=== PATIENT | female | born 1930 | race Caucasian/White ===

== ENCOUNTER 2019-05-05 17:38 | Inpatient (IN) | payer OTHER ==
[~2019-05-05] VITALS: Ht 160 cm; Wt 71.2 kg
[2019-05-05 17:40] VITALS: BP 115/48
[2019-05-05] MEDS ORDERED: NACL 0.9% 1,500 ML IV SCH (17:45)
[2019-05-05] MEDS ORDERED: cefTRIAXone 1,000 MG in DEXT 5% MINI-BAG PLUS 50 ML IV ONE (17:45)
--- NOTE | 2019-05-05 17:45 | NUR ---
PT BIBA C/O FEVER AND ALC. TYLENOL GIVEN BEFORE BEING SENDING TO THE ER. PT IS ON MONITOR WITH VSS. PATIENT STATES PAIN OF 0/10 AT THIS TIME; VSS; PATIENT POSITIONED FOR COMFORT; HOB ELEVATED; BEDRAILS UP X2; BED DOWN. ER MD MADE AWARE OF PT STATUS.
[2019-05-05 18:15] LABS: HEMATOCRIT 39.5 % (36-48); HEMOGLOBIN 13.2 g/dL (12.0-16.0); MEAN CORPUSCULAR HEMOGLOBIN 32 pg (27-31); MEAN CORPUSCULAR HGB CONC 33 g/dL (33-37); MEAN CORPUSCULAR VOLUME 95.6 fL (80-94); PLATELET COUNT (AUTO) 144 K/uL (140-450); RED BLOOD CELL COUNT(AUTO) 4.14 MIL/uL (4.20-5.40); WHITE BLOOD COUNT (AUTO) 14.2 K/uL (4.8-10.8)
--- NOTE | 2019-05-05 18:20 | NUR ---
STRAIGHT CATH IMPLEMENTED AND URINE SAMPLE OBTAINED. PT TOLERATED WELL.
[2019-05-05 18:30] LABS: LYMPHOCYTES % (MANUAL) 1 % (20-46); MONOCYTES % (MANUAL) 5 % (5-12)
[2019-05-05] MEDS ORDERED: cefTRIAXone 1,000 MG VIAL ONE (18:38)
[2019-05-05 18:40] LABS: ALBUMIN 2.9 g/dL (3.4-5.0); ASPARTATE AMINOTRANSFERASE 740 U/L (15-37); CARBON DIOXIDE 26.3 mmol/L (21-32); CREATININE 1.3 mg/dL (0.6-1.3); GLUCOSE 119 mg/dL (74-106); TOTAL BILIRUBIN 3.4 mg/dL (0.0-1.0); UREA NITROGEN, BLOOD 36 mg/dL (7-18)
[2019-05-05 19:06] LABS: SODIUM SERUM 149 mmol/L (136-145)
[2019-05-05 19:07] LABS: ANION GAP 14.6 (8-16); CHLORIDE 111 mmol/L (98-107); POTASSIUM 2.9 mmol/L (3.5-5.1)
--- NOTE | 2019-05-05 19:12 | NUR ---
Pt report given to HALEIGH Leach. Transfer of care at this time.
[2019-05-05] MEDS ORDERED: NACL 0.9% 1,000 ML IV ONE (19:40)
[2019-05-05] MEDS ORDERED: KCL 20 MEQ/WATER INJ PREMIX 100 ML IV ONE (19:40)
[2019-05-05 19:46] LABS: APPEARANCE,URINE CLEAR (CLEAR); BILIRUBIN,URINE NEGATIVE (NEGATIVE); BLOOD, URINE TRACE-I (NEGATIVE); COLOR,URINE YELLOW (YELLOW); LEUKOCYTE ESTERASE ,URINE NEGATIVE (NEGATIVE); NITRITE, URINE POSITIVE (NEGATIVE); UGLUCOSE NEGATIVE (NEGATIVE)
[2019-05-05 19:52] LABS: RBC,URINE 0-5 /HPF (0-5); WBC,URINE 0-5 /HPF (0-5)
[2019-05-05] MEDS ORDERED: metroNIDAZOLE 500 MG/NS PREMIX 100 ML IV ONE (22:20)
[2019-05-05] MEDS ORDERED: DEXT 5% /NACL 0.9% 1,000 ML IV SCH (22:28)
[2019-05-05] MEDS ORDERED: ONDANSETRON 4 MG/2 ML VIAL IVP PRN (22:30)
[2019-05-05] MEDS ORDERED: ACETAMINOPHEN 325 MG TAB PO PRN (22:30)
[2019-05-05] MEDS ORDERED: HYDROcodone/APAP 7.5/325 MG 1 TAB PO PRN (22:30)
--- NOTE | 2019-05-06 00:30 | NUR ---
RECEIVED REPORT FROM ER NURSE. PT LETHARGIC. ON O2 AT 2L/MIN VIA NC. NO RESP DISTRESS NOTED. NO S/S OF PAIN. PT ON MEDSURG. SKIN INTACT. IV TO RIGHT WRIST #20G AND LEFT WRIST #22G. SAFETY PRECAUTION IN PLACE.
[2019-05-06 00:36] LABS: CHOL/HDL RATIO 2.5 (1-4.5); MAGNESIUM 1.6 mg/dL (1.8-2.4); PHOSPHORUS 5.4 mg/dL (2.5-4.9); THYROID STIMULATING HORMONE 3.42 uIU/mL (0.34-3.74)
--- NOTE | 2019-05-06 00:40 | NUR ---
PT ADMITTED TO [facility] RM 125B. TRANSFERRED PT VIA RPATERSON WITH [facility]; STABLE CONDITION. REPORT GIVEN TO JAYDA RICARDO. TRANSFER OF CARE AT THIS TIME.
[2019-05-06 00:45] VITALS: BP 131/68
--- NOTE | 2019-05-06 00:50 | NUR ---
V/S TAKEN. PT HEART RATE 51. DR. CASTRO MADE AWARE. PER , HE WILL TRANSFER PT TO TELE.
[2019-05-06] MEDS ORDERED: ELUX75TA PO (02:20)
[2019-05-06] MEDS ORDERED: ASPI-1718 PO (02:20)
[2019-05-06] MEDS ORDERED: ESCI10TA PO (02:20)
[2019-05-06] MEDS ORDERED: AMLO10TA PO (02:20)
[2019-05-06] MEDS ORDERED: SYN.075 PO (02:20)
[2019-05-06] MEDS ORDERED: ATOR20TA PO (02:20)
[2019-05-06] MEDS ORDERED: KEP500 PO (02:20)
--- NOTE | 2019-05-06 03:00 | NUR ---
PT SLEEPING BUT AROUSABLE. RESP EVEN AND UNLABORED. NO S/S OF PAIN. PT KEPT COMFORTABLE.
[2019-05-06 04:00] VITALS: BP 101/63
[2019-05-06] MEDS ORDERED: MAGNESIUM OXIDE 400 MG TAB PO SCH (04:00)
[2019-05-06] MEDS ORDERED: KCL 20 MEQ/WATER INJ PREMIX 200 ML IV SCH (04:00)
--- NOTE | 2019-05-06 05:06 | NUR ---
PT AWAKE AND ALERT BUT NON VERBAL. NO S/S OF PAIN. NO S/S OF RESP DISTRESS NOTED. SAFETY PRECAUTION IN PLACE.
[2019-05-06] MEDS: metroNIDAZOLE 500 MG/NS PREMIX 100 ML IV SCH ×3 (05:21→22:27)
[2019-05-06] MEDS: LEVOTHYROXINE 0.075 MG TAB PO SCH (06:27)
--- NOTE | 2019-05-06 07:10 | NUR ---
ENDORSED PT TO DAY SHIFT NURSE. PT IN STABLE CONDITION.
--- NOTE | 2019-05-06 07:13 | NUR ---
RECEIVED FROM INFORMATION ASSURANCE MANAGER NURSE, PT IS ASLEEP AND LYING ON THE BED WITH SIDE RAILS UP AND CALL LIGHT WITHIN REACH, FALL AND SEIZURE PRECAUTION ENFORCED, IV LINES ON THE RT WRIST G. 20 ON SALINE LOCK AND ON THE LEFT WRIST G. 18 WITH D5 NS INFUSING AT 50ML/HR, INTACT, PT IS ON O2 2L NC, NO SIGN OF DISTRESS NOTED, VISIBLE CHEST RISE AND RESPIRATION IS EVEN, WILL CONTINUE TO BE MONITORED
[2019-05-06 07:45] LABS: BASOPHILS % (AUTO) 0.1 % (0.0-2.0); EOSINOPHILS % (AUTO) 0.1 % (0.0-4.0); HEMATOCRIT 38.3 % (36-48); HEMOGLOBIN 12.6 g/dL (12.0-16.0); LYMPHOCYTES # (AUTO) 0.7 K/uL (2.5-16.5); LYMPHOCYTES % (AUTO) 4.6 % (20.5-51.1); MEAN CORPUSCULAR HEMOGLOBIN 32 pg (27-31); MEAN CORPUSCULAR HGB CONC 33 g/dL (33-37); MEAN CORPUSCULAR VOLUME 97.6 fL (80-94); MONOCYTES # (AUTO) 0.7 K/uL (0.8-1.0); MONOCYTES % (AUTO) 4.2 % (1.7-9.3); NEUTROPHILS # (AUTO) 14.4 K/uL (1.8-7.7); PLATELET COUNT (AUTO) 133 K/uL (140-450); RED BLOOD CELL COUNT(AUTO) 3.92 MIL/uL (4.20-5.40); RED CELL DISTRIBUTION WIDTH 14.7 % (11.6-13.7); WHITE BLOOD COUNT (AUTO) 15.8 K/uL (4.8-10.8)
[2019-05-06 08:00] VITALS: BP 150/65
[2019-05-06 08:12] LABS: MAGNESIUM 1.8 mg/dL (1.8-2.4); PHOSPHORUS 4.9 mg/dL (2.5-4.9)
[2019-05-06 08:27] LABS: CHLORIDE 115 mmol/L (98-107); POTASSIUM 3.6 mmol/L (3.5-5.1); SODIUM SERUM 150 mmol/L (136-145)
[2019-05-06 08:28] LABS: ANION GAP 12.2 (8-16); CARBON DIOXIDE 26.4 mmol/L (21-32); CREATININE 1.2 mg/dL (0.6-1.3); GLUCOSE 114 mg/dL (74-106); UREA NITROGEN, BLOOD 35 mg/dL (7-18)
--- NOTE | 2019-05-06 08:30 | NUR ---
PT IS OFF THE UNIT FOR A CT OF THE HEAD, PT IS AWAKE AND AOX0, OPBEYS COMMAND AND SMILES.
--- NOTE | 2019-05-06 08:45 | NUR ---
PT IS BACK TO ROOM FROM A CT OF HEAD, WILL MONITOR PT.
[2019-05-06] MEDS ORDERED: ELUXADOLINE 75 MG PO SCH (09:00)
[2019-05-06] MEDS ORDERED: DOCUSATE SODIUM 100 MG GELCAP PO SCH (09:00)
--- NOTE | 2019-05-06 09:00 | NUR ---
PATIENT HAS BEEN SCREENED AND CATEGORIZED HIGH NUTRITION RISK. PATIENT WILL BE SEEN WITHIN 1-2 DAYS OF ADMISSION. 05/06/19-05/07/[address]
[2019-05-06] MEDS: ESCITALOPRAM 20 MG TAB PO SCH (11:08)
[2019-05-06] MEDS: levETIRAcetam 500 MG TAB PO SCH ×2 (11:09→22:29)
[2019-05-06] MEDS: FAMOTIDINE 20 MG TAB PO SCH (11:09)
--- NOTE | 2019-05-06 11:27 | NUR ---
ECHOCARDIOGRAM IS BEING DONE TO PT NOW, PT IS AWAKE AND CALM. NO SIGN OF DISTRESS NOTED.
[2019-05-06 12:00] VITALS: BP 152/65
[2019-05-06] MEDS: POTASSIUM CHL 20 MEQ/D5-1/2NS 1,000 ML IV SCH ×2 (13:01→22:30)
--- NOTE | 2019-05-06 13:01 | NUR ---
PT WAS GIVEN FLAGYL IVPB AND TOLERATING, AWAKE AND CALM ON THE BED, SAFETY AND SEIZURE PRECAUTION ENFORCED, NO SIGN OF DISTRESS NOTED AND WILL MONITOR PT.
--- NOTE | 2019-05-06 14:45 | NUR ---
SWALLOW EVALUATION IS BEING DONE TO PT NOW.
--- NOTE | 2019-05-06 14:59 | NUR ---
*S.T. BEDSIDE SWALLOW EVAL COMPLETED* See report for details. Pt presents w/ moderate oropharyngeal dysphagia c/b prolonged and incomplete mastication of solids due to limited lower dentition and moderate swallow delay (2-3 seconds) across all textures. No overt s/s aspiration observed, however. 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 Pt is at moderate risk for aspiration. Recommend: 1) Advance to pureed diet, thin liquids okay, straws okay; after cleared after surgery consult. 2) Crush P.O. meds and mix w/ puree such as applesauce. 3) 1:1 feeder w/ aspiration precautions. Pt appears to be functioning at baseline. Therefore no further swallow tx is indicated at this time. DC to [facility] [place] care; endorsed to HALEIGH Patton. Time [id number]
[2019-05-06 16:00] VITALS: BP 150/69
--- NOTE | 2019-05-06 16:20 | NUR ---
05/06/19 RD INITIAL ASSESSMENT COMPLETED PLEASE REFER TO NUTRITION ASSESSMENT UNDER CARE ACTIVITY FOR ESTIMATED NUTRITIONAL NEEDS. 1. CONTINUE NPO DIET TOLERATED 2. WHEN/IF MEDICALLY APPROPRIATE, CONSIDER PUREED DIET PER SWALLOW EVALUATION. 3. RD TO FOLLOW-UP 2-3 DAYS, HIGH RISK FACUNDO WALTON, RD
--- NOTE | 2019-05-06 18:17 | NUR ---
PT WAS GIVEN ROCEPHIN IVPB NOW.
--- NOTE | 2019-05-06 19:20 | NUR ---
ENDORSED PT TO FINANCIAL SERVICES INTERNSHIP NURSE REGISTRY FOR CONTINUITY OF CARE. PT IS STABLE AT THIS TIME.
[2019-05-06 20:36] VITALS: BP 128/82
[2019-05-06] MEDS: ATORVASTATIN 20 MG TAB PO SCH (21:00)
[2019-05-06] MEDS: SENNA 8.6 MG TAB PO SCH (22:28)
[2019-05-07 04:00] VITALS: BP 118/76
[2019-05-07] MEDS: metroNIDAZOLE 500 MG/NS PREMIX 100 ML IV SCH ×3 (05:23→21:01)
[2019-05-07 06:05] LABS: BASOPHILS % (AUTO) 0.4 % (0.0-2.0); EOSINOPHILS # (AUTO) 0.2 K/uL (0-0.4); EOSINOPHILS % (AUTO) 2.2 % (0.0-4.0); HEMATOCRIT 38.1 % (36-48); HEMOGLOBIN 12.6 g/dL (12.0-16.0); LYMPHOCYTES # (AUTO) 0.7 K/uL (2.5-16.5); LYMPHOCYTES % (AUTO) 8.5 % (20.5-51.1); MEAN CORPUSCULAR HEMOGLOBIN 32 pg (27-31); MEAN CORPUSCULAR HGB CONC 33 g/dL (33-37); MEAN CORPUSCULAR VOLUME 97.9 fL (80-94); MONOCYTES # (AUTO) 0.5 K/uL (0.8-1.0); MONOCYTES % (AUTO) 6.3 % (1.7-9.3); NEUTROPHILS # (AUTO) 7.2 K/uL (1.8-7.7); NEUTROPHILS % (AUTO) 82.6 % (42.2-75.2); PLATELET COUNT (AUTO) 112 K/uL (140-450); RED CELL DISTRIBUTION WIDTH 14.5 % (11.6-13.7); WHITE BLOOD COUNT (AUTO) 8.7 K/uL (4.8-10.8)
[2019-05-07 06:33] LABS: ALBUMIN 2.8 g/dL (3.4-5.0); ASPARTATE AMINOTRANSFERASE 252 U/L (15-37); CARBON DIOXIDE 27.5 mmol/L (21-32); CHLORIDE 113 mmol/L (98-107); CREATININE 1.1 mg/dL (0.6-1.3); GLUCOSE 107 mg/dL (74-106); MAGNESIUM 1.7 mg/dL (1.8-2.4); PHOSPHORUS 2.8 mg/dL (2.5-4.9); POTASSIUM 3.5 mmol/L (3.5-5.1); SODIUM SERUM 149 mmol/L (136-145); TOTAL BILIRUBIN 2.4 mg/dL (0.0-1.0); UREA NITROGEN, BLOOD 27 mg/dL (7-18)
[2019-05-07] MEDS: LEVOTHYROXINE 0.075 MG TAB PO SCH (06:41)
--- NOTE | 2019-05-07 07:17 | NUR ---
RECEIVED PATIENT FROM ELECTRICAL CAD DESIGNER NURSESAWYER PATIENT IS SLEEPING AT THIS TIME. RESPIRATIONS EVEN AND UNLABORED, ROOM AIR. VISIBLE CHEST RISE NOTED. ON TELE MONITORING. ABDOMEN SOFT AND NONTENDER. BOWEL SOUNDS ACTIVE X4 QUADS. SKIN WARM AND DRY. IV IN THE RIGHT WRIST G22, RUNNING D51/2 NS AT 100 ML/HR. PATENT AND INTACT. PATIENT IS BEDBOUND. FALL PRECAUTION IN PLACE. BED IN LOW POSITION. CALL LIGHT IS WITHIN REACH. WILL CONTINUE TO MONITOR
[2019-05-07 08:00] VITALS: BP 148/71
[2019-05-07] MEDS: levETIRAcetam 500 MG TAB PO SCH ×2 (09:24→21:02)
[2019-05-07] MEDS: SENNA 8.6 MG TAB PO SCH ×2 (09:24→21:01)
[2019-05-07] MEDS: FAMOTIDINE 20 MG TAB PO SCH (09:24)
[2019-05-07] MEDS: LACTOBACILLUS RHAMNOSUS GG 1 EACH CAP PO SCH (09:24)
[2019-05-07] MEDS: ESCITALOPRAM 20 MG TAB PO SCH (09:25)
--- NOTE | 2019-05-07 09:25 | NUR ---
GIVEN MORNING MEDICATIONS PO, CRUSHED AND MIXED WITH APPLESAUCE. EXPLAINED TO PATIENT MEDS. WILL CONTINUE TO MONITOR. BED IN LOW. CALL LIGHT IS WITHIN REACH. SEIZURE PRECAUTION IN PLACE.
[2019-05-07] MEDS ORDERED: MAG SULF 2000 MG/WATER PREMIX 50 ML IV SCH (11:00)
--- NOTE | 2019-05-07 11:12 | NUR ---
PATIENT PULLED IV. PATIENT REFUSED TO HAVE THE TELE MONITOR
[2019-05-07] MEDS: POTASSIUM CHL 20 MEQ/D5-1/2NS 1,000 ML IV SCH (11:20)
--- NOTE | 2019-05-07 11:20 | NUR ---
ADMINISTERED D51/2NS WITH KCL 20MEQ VIA IVF. EXPLAINED TO PATIENT MED. BED IN LOW POSITION. CALL LIGHT IS WITHIN REACH. WILL CONTINUE TO MONITOR
--- NOTE | 2019-05-07 11:25 | NUR ---
INSERTED IV IN THE RIGHT FOREARM GAUGE 22. IV PATENT AND INTACT. WILL CONTINUE TO MONITOR
--- NOTE | 2019-05-07 11:57 | NUR ---
GIVEN MAG RIDER FOR MAG LEVEL 1.7 VIA IVF. EXPLAINED TO PATIENT INDICATION. WILL CONTINUE TO MONITOR.
--- NOTE | 2019-05-07 13:35 | NUR ---
GIVEN FLAGYL VIA IVPB. EXPLAINED TO PATIENT MED. IV PATENT AND INTACT
--- NOTE | 2019-05-07 13:40 | NUR ---
PATIENT OFF UNIT FOR ERCP.
[2019-05-07] MEDS ORDERED: PROPOFOL 200 MG/20 ML VIAL IV ONE (14:20)
[2019-05-07] MEDS ORDERED: GLUCAGON 1 MG VIAL ONE (15:03)
[2019-05-07] MEDS ORDERED: hydrALAZINE 20 MG/ML VIAL IVP ONE (16:15)
[2019-05-07] MEDS ORDERED: hydrALAZINE 20 MG/ML VIAL ONE (16:18)
--- NOTE | 2019-05-07 16:45 | NUR ---
PATIENT IS BACK FROM ERCP VIA [facility].
--- NOTE | 2019-05-07 16:47 | NUR ---
VITAL SIGNS TAKEN. PATIENT ON 2L O2 VIA NC, SATURATING 98-100%. PATIENT IS SLEEP BUT OPEN EYES WHEN NAME IS CALLED
--- NOTE | 2019-05-07 17:34 | NUR ---
PATIENT IS SLEEPING BUT OPEN EYES WHEN CALLED NAME. ON 2L O2 VIA NC. BED IN LOW POSITION. CALL LIGHT IS WITHIN REACH. HOB AT 35 DEGREES. WILL CONTINUE TO MONITOR
--- NOTE | 2019-05-07 18:29 | NUR ---
PATIENT IS SLEEPING AT THIS TIME BUT OPEN EYES AND RESPONDS WHEN CALLED. BED IN LOW POSITION. CALL LIGHT IS WITHIN REACH.
--- NOTE | 2019-05-07 19:17 | NUR ---
ENDORSED PATIENT TO COOK'S ASSISTANT NURSE. PATIENT IS IN STABLE CONDITION
--- NOTE | 2019-05-07 19:22 | NUR ---
RECEIVED BEDSIDE REPORT FROM DAYSHIFT NURSE. PT RESTING IN BED. ABLE TO MAKE NEEDS KNOWN. RESPIRATIONS EVEN AND UNLABORED WITH NO SOB OR RESPIRATORY DISTRESS. IV SITE IN RFA 22G IS CLEAN, DRY, AND INTACT. SKIN WARM AND DRY TO TOUCH, SAFETY MEASURES IN PLACE. WILL CONTINUE TO MONITOR.
[2019-05-07 20:00] VITALS: BP 122/57
[2019-05-07] MEDS ORDERED: CRUSHER, PILL MC ONE (20:58)
[2019-05-07] MEDS: ATORVASTATIN 20 MG TAB PO SCH (21:01)
--- NOTE | 2019-05-07 21:02 | NUR ---
ADMINISTERED MEDICATION PRESCRIBED PER MD ORDER. PT TOLERATED WELL. MEDICATION CRUSHED AND MIXED WITH APPLESAUCE. MEDICATION EDUCATION PERFORMED. PT UNABLE TO RETURN DEMONSTRATION. SAFETY MEASURES IN PLACE. WILL CONTINUE TO MONITOR.
--- NOTE | 2019-05-07 22:17 | NUR ---
HOURLY ROUNDING.PT ASLEEP IN BED. RESPONSIVE TO VERBAL AND TACTILE STIMULI. ABLE TO MAKE NEEDS KNOWN. RESPIRATIONS EVEN AND UNLABORED WITH NO SOB OR RESPIRATORY DISTRESS. SKIN WARM AND DRY TO TOUCH, SAFETY MEASURES IN PLACE. WILL CONTINUE TO MONITOR.
--- NOTE | 2019-05-08 00:06 | NUR ---
PT ASLEEP IN BED. VISIBLE CHEST RISE NOTED. NO RESPIRATORY DISTRESS AT THIS TIME. SAFETY MEASURES IN PLACE. WILL CONTINUE TO MONITOR.
--- NOTE | 2019-05-08 01:33 | NUR ---
HOURLY ROUNDING. PT ASLEEP IN BED. RESPONSIVE TO VERBAL AND TACTILE STIMULI. ABLE TO MAKE SOME NEEDS KNOWN. RESPIRATIONS EVEN AND UNLABORED WITH NO SOB OR RESPIRATORY DISTRESS. SAFETY MEASURES IN PLACE. WILL CONTINUE TO MONITOR.
[2019-05-08] MEDS: POTASSIUM CHL 20 MEQ/D5-1/2NS 1,000 ML IV SCH ×2 (01:46→15:48)
--- NOTE | 2019-05-08 01:47 | NUR ---
ADMINISTERED IVF PRESCRIBED PER MD ORDER. PT TOLERATED WELL. SAFETY MEASURES IN PLACE. WILL CONTINUE TO MONITOR
--- NOTE | 2019-05-08 03:23 | NUR ---
PT ASLEEP IN BED. RESPONSIVE TO VERBAL AND TACTILE STIMULI. ABLE TO MAKE NEEDS KNOWN. RESPIRATIONS EVEN AND UNLABORED WITH NO SOB OR RESPIRATORY DISTRESS. SAFETY MEASURES IN PLACE. WILL CONTINUE TO MONITOR.
[2019-05-08 04:00] VITALS: BP 134/70
[2019-05-08] MEDS: metroNIDAZOLE 500 MG/NS PREMIX 100 ML IV SCH ×3 (04:48→21:12)
--- NOTE | 2019-05-08 04:50 | NUR ---
ADMINISTERED MEDICATION PRESCRIBED PER MD ORDER. PT TOLERATED WELL. NO COMPLICATIONS OR CONCERNS AT THIS TIME. WILL CONTINUE TO MONITOR.
--- NOTE | 2019-05-08 05:49 | NUR ---
HOURLY ROUNDING. RISE AND FALL OF CHEST. NO RESPIRATORY DISTRESS. SAFETY MEASURES IN PLACE. WILL CONTINUE TO MONITOR.
[2019-05-08] MEDS: LEVOTHYROXINE 0.075 MG TAB PO SCH (06:23)
--- NOTE | 2019-05-08 06:24 | NUR ---
WENT TO ADMINISTER MEDICATION PRESCRIBED PER MD ORDER BUT PT REFUSED TO TAKE MEDICATION. MEDICATION WAS CRUSHED AND PUT IN APPLESAUCE AND OFFERED TO PT. PT STILL REFUSED TO TAKE IT AND BECAME AGITATED. OFFERED MEDICATION AGAIN AND PATIENT BECAME MORE AGITATED AND CONTINUED TO REFUSE THE MEDICATION. SAFETY MEASURES IN PLACE. WILL CONTINUE TO MONITOR
--- NOTE | 2019-05-08 07:08 | NUR ---
ENDORSED AT BEDSIDE TO DAYSHIFT NURSE. PT ASLEEP IN BED. RESPONSIVE TO VERBAL AND TACTILE STIMULI. ABLE TO MAKE NEEDS KNOWN. RESPIRATIONS EVEN AND UNLABORED WITH NO SOB OR RESPIRATORY DISTRESS. SAFETY MEASURES IN PLACE. PT IS STABLE.
--- NOTE | 2019-05-08 07:10 | NUR ---
RECEIVED BEDSIDE REPORT FROM DIESEL POWER SHOVEL OPERATOR NURSE FOR CONTINUITY OF CARE. PT IS RESTING ON BED AT THIS TIME. AROUSABLE TO VOICE. RESPIRATION EVEN AND UNLABORED ON RA. FLACC 0. NO SIGNS OF DISTRESS NOTED. IV ON R FA 22G, CLEAN AND INTACT, INFUSING PER MD ORDER. SKIN CLEAN AND DRY. PT IS INCONTINENT AND BEDREST. MITTEN ON HADS NOTED, NO SIGNS OF INJURY, CAPILLARY RETURN < [address] SEC[address] SAFETY MEASURES IN PLACE. BED IN LOW POSITION AND CALL LIGHT WITHIN REACH. FALL RISK PROTOCOL IN PLACE AND BED ALARM ACTIVATED.
[2019-05-08 08:00] VITALS: BP 145/60
[2019-05-08 08:13] LABS: BASOPHILS % (AUTO) 0.2 % (0.0-2.0); EOSINOPHILS # (AUTO) 0.3 K/uL (0-0.4); EOSINOPHILS % (AUTO) 3.6 % (0.0-4.0); HEMATOCRIT 36.6 % (36-48); HEMOGLOBIN 12.3 g/dL (12.0-16.0); LYMPHOCYTES # (AUTO) 0.7 K/uL (2.5-16.5); LYMPHOCYTES % (AUTO) 9.7 % (20.5-51.1); MEAN CORPUSCULAR HEMOGLOBIN 32 pg (27-31); MEAN CORPUSCULAR HGB CONC 34 g/dL (33-37); MONOCYTES # (AUTO) 0.4 K/uL (0.8-1.0); MONOCYTES % (AUTO) 5.5 % (1.7-9.3); PLATELET COUNT (AUTO) 118 K/uL (140-450); RED BLOOD CELL COUNT(AUTO) 3.82 MIL/uL (4.20-5.40); RED CELL DISTRIBUTION WIDTH 14.5 % (11.6-13.7); WHITE BLOOD COUNT (AUTO) 7.4 K/uL (4.8-10.8)
--- NOTE | 2019-05-08 08:30 | NUR ---
RECEIVED A CALL FROM PARK MANAGER. EXPLAINED THAT PT HAS EAT BREAKFAST THIS AM AND CONSENT NEEDED TO BE SIGN. PARK MANAGER WAS AWARE AND INSTRUCTED PT NEED TO BE NPO FOR 4 HOURS FOR PROCEDURE. WILL CONTACT CT ONCE PT IS READY.
[2019-05-08 09:29] LABS: PHOSPHORUS 2.3 mg/dL (2.5-4.9)
[2019-05-08] MEDS: SENNA 8.6 MG TAB PO SCH ×2 (09:29→21:13)
[2019-05-08] MEDS: ESCITALOPRAM 20 MG TAB PO SCH (09:30)
[2019-05-08] MEDS: LACTOBACILLUS RHAMNOSUS GG 1 EACH CAP PO SCH (09:30)
[2019-05-08] MEDS: levETIRAcetam 500 MG TAB PO SCH ×2 (09:30→21:13)
[2019-05-08] MEDS: FAMOTIDINE 20 MG TAB PO SCH (09:30)
--- NOTE | 2019-05-08 09:30 | NUR ---
CHECKED AM VITAL SIGNS PRIOR TO MEDS ADMINISTER; TEMP 97.4, BP 145/60, PULSE 64, RR 16, SPO2 94% AT RA, FLACC 0. CRUSHED MEDS AND MIXED WITH APPLE SAUCE, MEDS ED PROVIDED AND REINFORCEMENT NEEDED DUE TO PT'S MENTAL STATUS, PT TOLERATED MEDS WELL. PT IS RESTING ON BED AND AROUSABLE TO VOICE, MUMBLING. NO SIGNS OF DISTRESS NOTED. SAFETY MEASURES IN PLACE. BED IN LOW POSITION AND CALL LIGHT WITHIN REACH. FALL RISK PROTOCOL IN PLACE AND BED ALARM ACTIVATED.
--- NOTE | 2019-05-08 11:02 | NUR ---
CALLED PT'S SON KELLI LAROSE [phone] AND OBTAINED VERBAL CONSENT FOR CT SCAN WITH CONTRAST. KELLI WAS AWARE AND ACKNOWLEDGED THAT PT IS GOING TO GET CT WITH CONTRAST AND AGREEABLE TO IT.
--- NOTE | 2019-05-08 11:50 | NUR ---
STARTED NEW IV ON RAC 20G, PT TOLERATED WELL. NO SIGNS OF DISTRESS NOTED. SAFETY MEASURES IN PLACE.
--- NOTE | 2019-05-08 12:22 | NUR ---
NOTIFIED PROSPECTING OBSERVER AND SPOKE WITH FINA THAT PT IS READY. CONSENT OBTAINED AND IV INSERTED. FINA WAS AWARE AND SAID "I WILL FERRYBOAT CAPTAIN PT IN 15 MINS."
--- NOTE | 2019-05-08 12:50 | NUR ---
PT IS OFF UNIT FOR CT SCAN. PT IS IN STABLE CONDITION.
--- NOTE | 2019-05-08 13:30 | NUR ---
PT CAME BACK ON UNIT. CONNECTED PT TO IV FLUID. SAFETY MEASURES IN PLACE. BED IN LOW POSITION AND CALL LIGHT WITHIN REACH. BED ALARM ACTIVATED.
--- NOTE | 2019-05-08 13:48 | NUR ---
ADMINISTERED METRONIDAZOLE VIA IVPB PER MD ORDER, MED ED PROVIDED TO PT AND REINFORCEMENT NEEDED DUE TO PT'S MENTAL STATUS, PT IS RESTING ON BED AT THIS TIME. RESPIRATION EVEN AND UNLABORED ON RA. FLACC 0. NO SIGNS OF DISTRESS NOTED. SAFETY MEASURES IN PLACE. BED IN LOW POSITION AND CALL LIGHT WITHIN REACH. FALL RISK PROTOCOL IN PLACE AND BED ALARM ACTIVATED.
[2019-05-08 14:45] LABS: ANION GAP 10.8 (8-16); CARBON DIOXIDE 25.7 mmol/L (21-32); CHLORIDE 113 mmol/L (98-107); CREATININE 0.9 mg/dL (0.6-1.3); GLUCOSE 83 mg/dL (74-106); POTASSIUM 3.5 mmol/L (3.5-5.1); SODIUM SERUM 146 mmol/L (136-145); UREA NITROGEN, BLOOD 21 mg/dL (7-18)
[2019-05-08] MEDS ORDERED: SODIUM PHOSPHATE 15 MMOLE in NACL 0.9% 250 ML IV SCH (15:00)
--- NOTE | 2019-05-08 15:48 | NUR ---
ADMINISTERED MED VIA IVPB PER MD ORDER, MED ED PROVIDED TO PT AND REINFORCEMENT NEEDED. PT IS RESTING ON BED, AROUSABLE TO VOICE. RESPIRATION EVEN AND UNLABORED ON RA. FLACC 0. NO SIGNS OF DISTRESS NOTED. SAFETY MEASURES IN PLACE. BED ALARM ACTIVATED.
[2019-05-08 16:00] VITALS: BP 148/65
--- NOTE | 2019-05-08 16:55 | NUR ---
PT ATTEMPTED TO REMOVED IV. FLUSHED IV AND PATENT. WRAPPED IV WITH FLEX AND EDUCATED PT NOT TO REMOVE IV AND IMPORTANCE TO KEEP IV ACCESS IN HOSPITAL. PT SMILED AND SAID "OH, OK!" SAFETY MEASURES IN PLACE. BED IN LOW POSITION AND CALL LIGHT WITHIN REACH. FALL RISK PROTOCOL IN PLACE AND BED ALARM ACTIVATED.
--- NOTE | 2019-05-08 17:50 | NUR ---
FOUND PT REMOVED ALL HER CLOTHES AND ATTEMPTED TO REMOVED IV. HELPED PT TO PUT ON CLOTHES, AND INSTRUCTED PT NOT TO REMOVED IV. SAFETY MEASURES IN PLACE. BED IN LOW POSITION AND CALL LIGHT WITHIN REACH. BED ALARM ACTIVATED.
--- NOTE | 2019-05-08 17:56 | NUR ---
05/08/2019 RD FOLLOW UP COMPLETED PLEASE REFER TO NUTRITION PROGRESS NOTE UNDER CARE ACTIVITY FOR ESTIMATED NUTRITION NEEDS. RD RECOMMENDATIONS: 1. RECOMMEND CONTINUE PUREE DIET TOLERATED 2. ENCOURAGE INCREASED PO INTAKE AND ASSIST PT NEEDED 3. RD TO MONITOR PO INTAKE AND CONSIDER NUTRITION SUPPORT SUPPLEMENT NEXT FOLLOW UP WITH CONTINUED POOR PO INTAKE. (WILL NOT INITIATE TODAY SINCE THE PUREE DIET ORDER IS NEW, STARTS AT DINNER MEAL) 4. RD TO FOLLOW-UP 2-3 DAYS, HIGH RISK ELKIN BEAR MBA, RD
--- NOTE | 2019-05-08 19:05 | NUR ---
ENDORSED PT AT BEDSIDE TO MALT HOUSE OPERATOR NURSE FOR CONTINUITY OF CARE. PT IS RESTING ON BED AT THIS TIME. AROUSABLE TO VOICE. PT IS IN STABLE CONDITION. SAFETY MEASURES IN PLACE. BED ALARM ACTIVATED.
--- NOTE | 2019-05-08 19:10 | NUR ---
RECEIVED REPORT FROM DAYSHIFT NURSE. PT IS RESTING ON BED AT THIS TIME. ABLE TO MAKE NEEDS KNOWN. SKIN WARM AND DRY TO TOUCH. RESPIRATIONS EVEN AND UNLABORED WITH NO SOB OR RESPIRATORY DISTRESS. SAFETY MEASURES IN PLACE. WILL CONTINUE TO MONITOR.
[2019-05-08 20:00] VITALS: BP 93/76
--- NOTE | 2019-05-08 20:30 | NUR ---
HOURLY ROUNDING. PT RESTING IN BED. RESPIRATIONS EVEN AND UNLABORED WITH NO SOB OR RESPIRATORY DISTRESS. PT HAD SOILED CHUX PADS. TURNED AND CHANGED PATIENT. PT TOLERATED WELL. SAFETY MEASURES IN PLACE. WILL CONTINUE TO MONITOR
--- NOTE | 2019-05-08 21:12 | NUR ---
ADMINISTERED MEDICATION PRESCRIBED PER MD ORDER. PT TOLERATED WELL. MEDICATION EDUCATION PERFORMED. PT UNABLE TO VERBALIZE UNDERSTANDING. SAFETY MEASURES IN PLACE.
[2019-05-08] MEDS: ATORVASTATIN 20 MG TAB PO SCH (21:13)
--- NOTE | 2019-05-08 23:38 | NUR ---
HOURLY ROUNDING. PT ASLEEP IN BED. RESPONSIVE TO VERBAL AND TACTILE STIMULI. RESPIRATIONS EVEN AND UNLABORED WITH NO SOB OR RESPIRATORY DISTRESS. SAFETY MEASURES IN PLACE. WILL CONTINUE TO MONITOR
--- NOTE | 2019-05-09 01:40 | NUR ---
VISUAL CHECKS. CHEST RISES AND FALLS SYMMETRICALLY. NO DISTRESS NOTED.
--- NOTE | 2019-05-09 03:03 | NUR ---
PT ASLEEP IN BED. RESPONSIVE TO VERBAL AND TACTILE STIMULI. RESPIRATIONS EVEN AND UNLABORED WITH NO SOB OR RESPIRATORY DISTRESS. SAFETY MEASURES IN PLACE. WILL CONTINUE TO MONITOR
[2019-05-09 04:00] VITALS: BP 122/70
--- NOTE | 2019-05-09 04:15 | NUR ---
PT ASLEEP IN BED. RESPONSIVE TO VERBAL AND TACTILE STIMULI. RESPIRATIONS EVEN AND UNLABORED WITH NO SOB OR RESPIRATORY DISTRESS. PT SOILED CHUX PAD AND WAS CHANGED. SAFETY MEASURES IN PLACE. WILL CONTINUE TO MONITOR
[2019-05-09] MEDS: metroNIDAZOLE 500 MG/NS PREMIX 100 ML IV SCH ×2 (05:03→13:08)
--- NOTE | 2019-05-09 05:03 | NUR ---
ADMINISTERED MEDICATION PRESCRIBED PER MD ORDER. PT TOLERATED WELL. MEDICATION EDUCATION PERFORMED. PT UNABLE TO VERBALIZED UNDERSTANDING. SAFETY MEASURES IN PLACE. WILL CONTINUE TO MONITOR
[2019-05-09] MEDS: LEVOTHYROXINE 0.075 MG TAB PO SCH (06:30)
[2019-05-09] MEDS: POTASSIUM CHL 20 MEQ/D5-1/2NS 1,000 ML IV SCH (06:36)
--- NOTE | 2019-05-09 07:15 | NUR ---
ENDORSED TO DAYSHIFT NURSE. PT RESTING IN BED. ABLE TO MAKE NEEDS KNOWN. SKIN WARM AND DRY TO TOUCH. RESPIRATIONS EVEN AND UNLABORED WITH NO SOB OR RESPIRATORY DISTRESS. SAFETY MEASURES IN PLACE. PT IS STABLE.
--- NOTE | 2019-05-09 07:16 | NUR ---
RECEIVED REPORT FROM ART APPRAISER NURSE. PT IS STABLE, NO SIGNS OF DISTRESS. PT HAS IV AT RT FOREARM 22G AND RT AC 20G WITH D5 NS INFUSING AT 70ML/HR. PT HAS NO KNOWN ALLERGIES. CALL LIGHT WITHIN PT'S REACH, BED ON LOW, SIDERAILS UP.WILL CONTINUE TO MONITOR.
[2019-05-09 07:26] LABS: BASOPHILS % (AUTO) 0.4 % (0.0-2.0); EOSINOPHILS # (AUTO) 0.3 K/uL (0-0.4); EOSINOPHILS % (AUTO) 4.8 % (0.0-4.0); HEMATOCRIT 37.7 % (36-48); HEMOGLOBIN 12.7 g/dL (12.0-16.0); LYMPHOCYTES # (AUTO) 0.7 K/uL (2.5-16.5); LYMPHOCYTES % (AUTO) 10.3 % (20.5-51.1); MEAN CORPUSCULAR HEMOGLOBIN 32 pg (27-31); MEAN CORPUSCULAR HGB CONC 34 g/dL (33-37); MEAN CORPUSCULAR VOLUME 95.6 fL (80-94); MONOCYTES # (AUTO) 0.5 K/uL (0.8-1.0); MONOCYTES % (AUTO) 7.5 % (1.7-9.3); NEUTROPHILS # (AUTO) 5.3 K/uL (1.8-7.7); PLATELET COUNT (AUTO) 115 K/uL (140-450); RED BLOOD CELL COUNT(AUTO) 3.94 MIL/uL (4.20-5.40); RED CELL DISTRIBUTION WIDTH 14.3 % (11.6-13.7); WHITE BLOOD COUNT (AUTO) 6.8 K/uL (4.8-10.8)
[2019-05-09 07:44] LABS: ANION GAP 11.9 (8-16); CARBON DIOXIDE 27.3 mmol/L (21-32); CHLORIDE 109 mmol/L (98-107); CREATININE 0.8 mg/dL (0.6-1.3); GLUCOSE 86 mg/dL (74-106); POTASSIUM 3.2 mmol/L (3.5-5.1); SODIUM SERUM 145 mmol/L (136-145); UREA NITROGEN, BLOOD 14 mg/dL (7-18)
[2019-05-09 07:51] LABS: MAGNESIUM 1.7 mg/dL (1.8-2.4); PHOSPHORUS 2.7 mg/dL (2.5-4.9)
[2019-05-09 08:00] VITALS: BP 165/68
[2019-05-09] MEDS: LACTOBACILLUS RHAMNOSUS GG 1 EACH CAP PO SCH (09:18)
[2019-05-09] MEDS: SENNA 8.6 MG TAB PO SCH (09:18)
[2019-05-09] MEDS: ESCITALOPRAM 20 MG TAB PO SCH (09:19)
[2019-05-09] MEDS: levETIRAcetam 500 MG TAB PO SCH (09:19)
[2019-05-09] MEDS: FAMOTIDINE 20 MG TAB PO SCH (09:20)
--- NOTE | 2019-05-09 09:22 | NUR ---
VITAL SIGNS TAKEN; BP 165/68, PULSE 55, RR 16, SPO2 95% ON RA, DENIED PAIN. NOTIFIED DR DALEY THAT BP IS HIGH. SCHEDULED MEDS GIVEN CRUSHED AND MIXED WITH APPLESAUCE. MEDICATION EDUCATION PROVIDED TO THE PT. WILL CONTINUE TO MONITOR.
[2019-05-09] MEDS ORDERED: ENALAPRILAT 2.5 MG/2 ML VIAL IVP SCH (10:15)
[2019-05-09] MEDS ORDERED: LACT10CA PO (10:26)
[2019-05-09] MEDS ORDERED: ROC2I IV (10:26)
[2019-05-09] MEDS ORDERED: METR500S14 IV (10:26)
--- NOTE | 2019-05-09 10:50 | NUR ---
CHECKED BP PRIOR TO MED ADMINISTER, BP 168/73, PULSE 54. ADMINISTERED BP MED VIA IVP AND MAG CHL, CRUSHED AND MIXED IN APPLE SAUCE, PT TOLERATED WELL. MEDS ED PROVIDED TO PT AND REINFORCEMENT NEEDED. PT IS RESTING ON BED. DENIED PAIN, SOB, AND DIZZINESS. NO SIGNS OF DISTRESS NOTED. SAFETY MEASURES IN PLACE. BED ALARM ACTIVATED.
[2019-05-09] MEDS ORDERED: POTASSIUM CHLORIDE 20% 40 MEQ/15 ML UDC PO SCH (11:00)
[2019-05-09] MEDS ORDERED: MAGNESIUM CHLORIDE 64 MG TABEC PO SCH (11:00)
[2019-05-09 11:06] LABS: ALBUMIN 2.5 g/dL (3.4-5.0); BILIRUBIN,DIRECT 0.7 mg/dL (0.0-0.3); TOTAL BILIRUBIN 1.5 mg/dL (0.0-1.0)
--- NOTE | 2019-05-09 11:24 | NUR ---
ADMINISTERED ROCEPHIN VIA IVPB PER MD ORDER, MED ED PROVIDED TO PT AND REINFORCEMENT NEEDED DUE TO PT'S MENTAL STATUS. PT RESTING ON BED. RESPIRATION EVEN AND UNLABORED ON RA. NO SIGNS OF DISTRESS NOTED. SAFETY MEASURES IN PLACE. BED ALAR ACTIVATED.
[2019-05-09 11:51] VITALS: BP 153/68
--- NOTE | 2019-05-09 11:51 | NUR ---
REASSESSED BP AND RECEIVED 153/68 PULSE 61. PT IS RESTING ON BED. RESPIRATION EVEN AND UNLABORED ON RA. WHEN ASKED IF SHE HAS PAIN, PT REPLIES "NO NO!" FLACC 0. NO SIGNS OF DISTRESS NOTED. SAFETY MEASURES IN PLACE. BED IN LOW POSITION AND CALL LIGHT WITHIN REACH. BED ALARM ACTIVATED.
--- NOTE | 2019-05-09 12:01 | NUR ---
ADMINISTERED POTASSIUM CHLORIDE VIA PO, PT TOLERATED WELL. MED ED PROVIDED AND REINFORCEMENT NEEDED. PT IS RESTING ON BED. NO SIGNS OF DISTRESS NOTED. SAFETY MEASURES IN PLACE. BED ALARM ACTIVATED.
--- NOTE | 2019-05-09 13:08 | NUR ---
ADMINISTERED METRONIDAZOLE VIS IVPB PER MD ORDER, MED ED PROVIDED TO PT AND REINFORCEMENT NEEDED DUE TO PT'S MENTAL STATUS. PT IS SITTING UP ON BED AND EATING HER LUNCH SLOWLY. NO SIGNS OF DISTRESS NOTED. SAFETY MEASURES IN PLACE. BED ALARM ACTIVATED.
--- NOTE | 2019-05-09 15:05 | NUR ---
FREQUENT CHECKS DONE. PT IS ASLEEP COMFORTABLY. NO SIGNS OF DISTRESS. ALL SAFETY MEASURES ARE IN PLACE. CALL LIGHT WITHIN PT'S REACH. WILL CONTINUE TO MONITOR
--- NOTE | 2019-05-09 15:45 | NUR ---
RECEIVED A CALL FROM PRABHAKAR FROM [facility]. HE SAID THAT THE PT WILL GO TO ROOM 204 B AND WE WILL NEED TO ARRANGE THE TRANSPORT. COMMUNICATED THE INFO TO THE CHARGE NURSE.
--- NOTE | 2019-05-09 15:45 | NUR ---
CALLED [facility], SPOKE WITH [facility]EN [facility]. PT'S FACE SHEET FAXED TO PRABHAKAR REQUESTED. @1600 HRS; GUILLERMO CALLED BACK FOR ROOM NUMBER ([id number]). SET UP TRANSPORTATION THRU [facility], [place]. PER GIOVANNI, ETA WILL BE AT 5 PM TODAY. CAL ASSIGNED MADE AWARE.
--- NOTE | 2019-05-09 16:30 | NUR ---
PCS FORM FAXED TO [facility], CONFIRMATION ATTACHED TO PT'S CHART.
--- NOTE | 2019-05-09 16:45 | NUR ---
GAVE REPORT TO JUNE FROM [facility]. ALSO INFORMED SON, KELLI REGARDING THE TRANSFER. HE VERBALIZED UNDERSTANDING.
--- NOTE | 2019-05-09 16:48 | NUR ---
PT PULLED OUT IV FROM R AC, CHECKED IV CANNULA INTACT. NO BLEEDING AT IV SITE. EDUCTED PT NOT TO REMOVED IV AND IMPORTANCE OF HAVING IV ACCESS, REINFORCEMENT NEEDED. MANAGER FORENSIC IS CHANGING PT INTO PINK GOWN. NO SIGNS OF DISTRESS NOTED. SAFETY MEASURES IN PLACE. BED ALARM ACTIVATED.
--- NOTE | 2019-05-09 17:00 | NUR ---
PT IS PICKED UP VIA [facility]. GAVE BRIEF REPORT REGARDING THE ROOM NUMBER AND FACILITY. DENTURES AND PACKET WERE GIVEN TO TRANSPORT OJ.
[2019-05-09] MEDS ORDERED: SENNA 8.6 MG TAB PO SCH (21:00)
[2019-05-10] MEDS ORDERED: ESCITALOPRAM 20 MG TAB PO SCH (09:00)
== END 2019-05-09 17:05 | DRG 444 ==
LOC: MED 17:38 → MMU 22:28
PROVIDERS: ADMIT General Practice; ATTEND General Practice
PROC: 0F798DZ Dilation of Common Bile Duct with Intraluminal Device, Via Natural or Artificial Opening Endoscopic (ICD-10-PCS; principal; 2019-05-07 12:00)
DX: K83.1 Obstruction of bile duct (principal); G93.41 Metabolic encephalopathy; E43 Unspecified severe protein-calorie malnutrition; J96.20 Acute and chronic respiratory failure, unspecified whether with hypoxia or hypercapnia; I62.00 Nontraumatic subdural hemorrhage, unspecified; N17.0 Acute kidney failure with tubular necrosis; N39.0 Urinary tract infection, site not specified; E87.0 Hyperosmolality and hypernatremia; J84.9 Interstitial pulmonary disease, unspecified; E87.2 Acidosis; R78.81 Bacteremia; E03.9 Hypothyroidism, unspecified; E78.5 Hyperlipidemia, unspecified; G30.9 Alzheimer's disease, unspecified; F02.80 Dementia in other diseases classified elsewhere, unspecified severity, without behavioral disturbance, psychotic disturbance, mood disturbance, and anxiety; G40.909 Epilepsy, unspecified, not intractable, without status epilepticus; I10 Essential (primary) hypertension; F32.9 Major depressive disorder, single episode, unspecified; K57.90 Diverticulosis of intestine, part unspecified, without perforation or abscess without bleeding; K58.9 Irritable bowel syndrome, unspecified; E87.6 Hypokalemia; E83.42 Hypomagnesemia; R13.10 Dysphagia, unspecified; E87.8 Other disorders of electrolyte and fluid balance, not elsewhere classified; E83.39 Other disorders of phosphorus metabolism; I44.7 Left bundle-branch block, unspecified; Z68.28 Body mass index [BMI] 28.0-28.9, adult
CPT/HCPCS: 36415; 70450; 71045; 71260; 74330; 76705; 77003; 80048; 80053; 80076; 81001; 82150; 82550; 83036; 83605; 83690; 83735; 83880; 84100; 84443; 84484; 85025; 85610; 85730; 87040; 87081; 87086; 87186; 87804; 92610; 93005; 96361; 96365; 96367; 99291; C1758; C1769; C1773; J0360; J0696; J1610; J2704; J3475; J3480; J3490; J7030; J7042; J7060; Q0092

== ENCOUNTER 2020-03-18 15:14 | Emergency (ER) | payer OTHER ==
[~2020-03-18] VITALS: Ht 162.6 cm; Wt 54.4 kg
[~2020-03-18 15:14] MED LIST: AMLO10TA PO; ASPI-1822 PO; ATOR20TA PO; ELUX75TA PO; ESCI10TA PO; KEP500 PO; LACT10CA PO; METR500S14 IV; ROC2I IV; SYN.075 PO
[2020-03-18 15:24] VITALS: BP 118/55
--- NOTE | 2020-03-18 15:29 | NUR ---
BIBA TO BED 7.
[2020-03-18 17:24] LABS: APPEARANCE,URINE CLEAR (CLEAR); BILIRUBIN,URINE NEGATIVE (NEGATIVE); BLOOD, URINE NEGATIVE (NEGATIVE); COLOR,URINE YELLOW (YELLOW); LEUKOCYTE ESTERASE ,URINE NEGATIVE (NEGATIVE); NITRITE, URINE NEGATIVE (NEGATIVE); PH,URINE 5.5 (5.0-9.0); UGLUCOSE NEGATIVE (NEGATIVE)
--- NOTE | 2020-03-18 17:30 | NUR ---
89 YEAR OLD BIBA FROM HOME AFTER SYNCOPE EPISODE. PER SON ON PHONE SHE WAS CONSTIPATED AND TRIED REALLY HARD TO PASS STOOL. AFTER PASSING STOOL, PT PASSED OUT. EVENT WAS WITNESSED BY SON, STATES SHE DID NOT FALL OR HIT HEAD. PT ALERT AND AWAKE, APHASIC, BREATHING EVEN AND UNLABORED, SKIN WARM AND DRY. BED IN LOWEST POSITION, LOCKED, BED RAIL UPX2. PMH - DEMENTIA ALLERGIES - NKA
[2020-03-18 17:46] LABS: BASOPHILS % (AUTO) 0.4 % (0.0-2.0); EOSINOPHILS # (AUTO) 0.1 K/uL (0-0.4); EOSINOPHILS % (AUTO) 1.5 % (0.0-4.0); HEMATOCRIT 42.2 % (36-48); HEMOGLOBIN 14.2 g/dL (12.0-16.0); LYMPHOCYTES # (AUTO) 0.8 K/uL (2.5-16.5); MEAN CORPUSCULAR HEMOGLOBIN 32 pg (27-31); MEAN CORPUSCULAR HGB CONC 34 g/dL (33-37); MEAN CORPUSCULAR VOLUME 96.3 fL (80-94); MONOCYTES # (AUTO) 0.5 K/uL (0.8-1.0); MONOCYTES % (AUTO) 5.6 % (1.7-9.3); NEUTROPHILS # (AUTO) 7.5 K/uL (1.8-7.7); NEUTROPHILS % (AUTO) 83.5 % (42.2-75.2); PLATELET COUNT (AUTO) 168 K/uL (140-450); RED BLOOD CELL COUNT(AUTO) 4.38 MIL/uL (4.20-5.40); RED CELL DISTRIBUTION WIDTH 13.9 % (11.6-13.7); WHITE BLOOD COUNT (AUTO) 8.9 K/uL (4.8-10.8)
[2020-03-18 18:07] LABS: ALBUMIN 3.3 g/dL (3.4-5.0); ASPARTATE AMINOTRANSFERASE 25 U/L (15-37); CHLORIDE 105 mmol/L (98-107); CREATININE 1.2 mg/dL (0.6-1.3); GLUCOSE 164 mg/dL (74-106); SODIUM SERUM 141 mmol/L (136-145); TOTAL BILIRUBIN 0.4 mg/dL (0.0-1.0); UREA NITROGEN, BLOOD 22 mg/dL (7-18)
[2020-03-18 18:31] LABS: PROTHROMBIN TIME 10.4 secs (10.8-13.4)
--- NOTE | 2020-03-18 18:40 | NUR ---
PT ALERT AND AWAKE, BREATHING EVEN AND UNLABORED.
--- NOTE | 2020-03-18 19:05 | NUR ---
REPORT GIVEN TO MARCY RICARDO, TRANSFER OF CARE AT THIS TIME
--- NOTE | 2020-03-18 19:09 | NUR ---
RECEIVED REPORT FROM HALEIGH MCWILLIAMS FOR CONTINUITY OF CARE.
--- NOTE | 2020-03-18 19:47 | NUR ---
Patient discharged with v/s stable. Written and verbal after care instructions given and explained. Patient alert, oriented and verbalized understanding of instructions. Wheel Chair Assisted with by caregiver. All questions addressed prior to discharge. ID band removed. Patient advised to follow up with PMD. Rx of COLACE given. Patient educated on indication of medication including possible reaction and side effects. Opportunity to ask questions provided and answered.
[2020-03-18 19:48] VITALS: BP 109/40
== END 2020-03-18 19:47 | disposition home or self-care (01) ==
LOC: MED 15:14
DX: R55 Syncope and collapse (principal); F03.90 Unspecified dementia, unspecified severity, without behavioral disturbance, psychotic disturbance, mood disturbance, and anxiety; I10 Essential (primary) hypertension; E03.9 Hypothyroidism, unspecified; Z79.82 Long term (current) use of aspirin; Z79.899 Other long term (current) drug therapy
CPT/HCPCS: 36415; 71045; 80053; 81003; 83735; 83880; 84484; 85025; 85610; 85730; 93005; 99285